=== PATIENT | female | born 1960 | race Caucasian/White ===

== ENCOUNTER 2016-12-08 03:29 | Emergency (ER) | payer OTHER ==
[~2016-12-08] VITALS: Ht 170.2 cm; Wt 77.3 kg
[2016-12-08 03:34] VITALS: TEMP 36.8; Ht 170.2 cm; Wt 77.3 kg
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
[2016-12-08] MEDS ORDERED: MULT-506 PO (03:53)
[2016-12-08 05:26] VITALS: BP 124/84; PULSE 72; O2SAT 99
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
== END 2016-12-08 05:27 | disposition home or self-care (01) ==
LOC: EDBD 03:29 → C.EDA 03:32
DX: M25.562 Pain in left knee (principal); R51 Headache; M54.2 Cervicalgia; V43.52XA Car driver injured in collision with other type car in traffic accident, initial encounter